=== PATIENT | female | born 2000 | race African-American/Black ===

== ENCOUNTER 2022-03-15 13:18 | Emergency (ER) | payer MEDICAID, OTHER ==
[~2022-03-15] VITALS: Ht 160 cm; Wt 140.0 kg
[2022-03-15 14:35] VITALS: BP 125/76
[2022-03-15] MEDS ORDERED: KETOROLAC TROMETH 30 MG/ML 1ML VIAL IV ONE (16:00)
[2022-03-15] MEDS ORDERED: IBUP800T27 PO (16:12)
[2022-03-15] MEDS ORDERED: METH500T22 PO (16:12)
== END 2022-03-15 16:19 | disposition home or self-care (01) ==
LOC: ER 13:18 → EDBD 13:18 → ER 16:19
DX: S16.1XXA Strain of muscle, fascia and tendon at neck level, initial encounter (principal); S39.012A Strain of muscle, fascia and tendon of lower back, initial encounter; M62.830 Muscle spasm of back; V43.52XA Car driver injured in collision with other type car in traffic accident, initial encounter; Y93.89 Activity, other specified; Y92.488 Other paved roadways as the place of occurrence of the external cause; Y99.8 Other external cause status
CPT/HCPCS: 71045; 72040; 72070; 72100; 96374; 99284; J1885